=== PATIENT | female | born 1955 | race Caucasian/White ===

== ENCOUNTER 2018-06-07 21:06 | Observation (INO) | payer BC, OTHER ==
[~2018-06-07] VITALS: Ht 160 cm; Wt 81.9 kg
[~2018-06-07 21:06] MED LIST: FLAGYL500 MG PO; FLEXERIL10 MG PO; FLONASE16 G1 BOTH NARES; LUNESTA3 MG PO; MEVACOR40 MG PO; PERCOCET 10/1 TABLET PO; PROVENTIL2.5 MG/3 M IH; TOPAMAX100 MG PO; VENTOLIN HFA18 GM IH; XYZAL5 MG PO
[2018-06-07 22:35] LABS: BASOPHIL (%) 0.7 % (0-1); BASOPHIL COUNT 0.1 K/uL (0-0.1); EOSINOPHIL (%) 2.5 % (0-5); EOSINOPHIL COUNT 0.2 K/uL (0-0.3); HEMATOCRIT 39.6 % (36.0-46.0); HEMOGLOBIN 13.5 G/DL (11.9-15.5); IMMATURE GRANULOCYTE (%) 0.4 % (0.0-0.7); LYMPHOCYTE (%) 33.8 % (15-42); LYMPHOCYTE COUNT 2.3 K/uL (1.0-2.8); MCH 31.3 PG (29.0-34.0); MCHC 34.1 G/DL (30.0-36.0); MCV 91.7 FL (83-99); MONOCYTE (%) 8.4 % (3-12); MONOCYTE COUNT 0.6 K/uL (0-0.8); NEUTROPHIL (%) 54.2 % (45-76); NEUTROPHIL COUNT 3.6 K/uL (1.8-6.4); PLATELET COUNT 281 K/uL (156-360); RBC DIS.WIDTH-CV 12.2 % (11.8-14.6); RBC DIS.WIDTH-SD 40.6 % (39-53); RED BLOOD COUNT 4.32 M/uL (3.80-5.20); WHITE BLOOD COUNT 6.7 K/uL (4.1-10.2)
[2018-06-07 22:43] LABS: CHLORIDE 108 mEq/L (99-109); POTASSIUM 3.7 mEq/L (3.7-5.4); SODIUM 141 mEq/L (136-147)
[2018-06-07 22:44] LABS: MAGNESIUM 2.2 mg/dL (1.3-2.7)
[2018-06-07 22:45] LABS: GLUCOSE 95 mg/dL (70-99)
[2018-06-07 22:49] LABS: CREATININE 0.9 mg/dL (0.6-1.3); GFR ESTIMATE (CALCULATED) > 59 mL/min/; UREA NITROGEN (BUN) 12 mg/dL (9-23)
[2018-06-07 22:53] LABS: TROP-I INTERPRETATION NEGATIVE; TROPONIN-I 0.14 ng/mL (0.0-0.30)
[2018-06-08] MEDS ORDERED: AMITRIPTYLINE H25 MG PO (00:57)
[2018-06-08] MEDS ORDERED: OXYCODONE-APAP1 EACH PO (00:57)
[2018-06-08] MEDS ORDERED: LOVASTATIN40 MG PO (00:58)
[2018-06-08] MEDS ORDERED: LEVOCETIRIZINE D5 MG PO (00:59)
[2018-06-08] MEDS ORDERED: TOPIRAMATE100 MG PO (00:59)
[2018-06-08] MEDS ORDERED: XANAX0.25 MG PO (01:00)
[2018-06-08] MEDS ORDERED: ADVAIR 100/501 DISK IH (01:01)
[2018-06-08] MEDS ORDERED: EFFEXOR75 MG PO (01:01)
[2018-06-08] MEDS ORDERED: PREVACID30 MG PO (01:01)
[2018-06-08] MEDS ORDERED: LO-DOSE ASPIRIN81 M2 PO (01:03)
[2018-06-08 02:27] LABS: ALBUMIN 4.4 g/dL (3.2-4.8)
[2018-06-08 02:30] LABS: TOTAL PROTEIN 7.1 g/dL (6.4-8.3)
[2018-06-08 02:31] LABS: TOTAL BILIRUBIN 0.4 mg/dL (0.0-1.0)
[2018-06-08 02:32] LABS: ALKALINE PHOSPHATASE 83 IU/L (3-129)
[2018-06-08 02:35] LABS: AST (GOT) 18 IU/L (2-34); DIRECT BILIRUBIN 0.1 mg/dL (0.0-0.3)
[2018-06-08 02:36] LABS: ALT (GPT) 16 IU/L (3-49); LIPASE 18 U/L (1.0-51.0)
[2018-06-08 03:21] VITALS: BP 159/85
[2018-06-08 05:01] LABS: HEMATOCRIT 37.5 % (36.0-46.0); HEMOGLOBIN 12.9 G/DL (11.9-15.5); MCH 31.5 PG (29.0-34.0); MCHC 34.4 G/DL (30.0-36.0); MCV 91.5 FL (83-99); PLATELET COUNT 263 K/uL (156-360); RBC DIS.WIDTH-CV 12.2 % (11.8-14.6); RBC DIS.WIDTH-SD 40.8 % (39-53); WHITE BLOOD COUNT 6.5 K/uL (4.1-10.2)
[2018-06-08 05:10] LABS: CHLORIDE 108 mEq/L (99-109); POTASSIUM 3.4 mEq/L (3.7-5.4); SODIUM 140 mEq/L (136-147)
[2018-06-08 05:15] LABS: CREATININE 0.9 mg/dL (0.6-1.3); GFR ESTIMATE (CALCULATED) > 59 mL/min/
[2018-06-08 05:16] LABS: GLUCOSE 119 mg/dL (70-99); UREA NITROGEN (BUN) 12 mg/dL (9-23)
[2018-06-08 05:22] LABS: TROP-I INTERPRETATION NEGATIVE; TROPONIN-I 0.15 ng/mL (0.0-0.30)
[2018-06-08 07:41] VITALS: BP 126/64
[2018-06-08 11:35] LABS: TROP-I INTERPRETATION NEGATIVE; TROPONIN-I 0.13 ng/mL (0.0-0.30)
[2018-06-08 11:42] VITALS: BP 122/71
[2018-06-08] MEDS ORDERED: NITROSTAT0.4 MG SL (13:01)
[2018-06-08] MEDS ORDERED: LOPRESSOR25 MG PO (13:02)
[2018-06-08 13:26] LABS: BENZODIAZEPINES, URINE SCREEN Negative (200 ng/mL)
== END 2018-06-08 15:08 | disposition home or self-care (01) ==
LOC: EME 21:06 → EDOF 06-08 01:32 → ENRESERV 06-08 01:33 → 4SOUTH 06-08 02:29
PROVIDERS: Emergency Medicine; Hospitalist
DX: R07.9 Chest pain, unspecified (principal); I25.10 Atherosclerotic heart disease of native coronary artery without angina pectoris; J44.9 Chronic obstructive pulmonary disease, unspecified; I10 Essential (primary) hypertension; E78.5 Hyperlipidemia, unspecified; F41.9 Anxiety disorder, unspecified; I73.9 Peripheral vascular disease, unspecified; Z95.820 Peripheral vascular angioplasty status with implants and grafts; Z79.82 Long term (current) use of aspirin; K21.9 Gastro-esophageal reflux disease without esophagitis; I25.2 Old myocardial infarction; G89.29 Other chronic pain; M54.9 Dorsalgia, unspecified; Z90.710 Acquired absence of both cervix and uterus; Z87.891 Personal history of nicotine dependence; F12.90 Cannabis use, unspecified, uncomplicated; Z80.3 Family history of malignant neoplasm of breast; Z82.49 Family history of ischemic heart disease and other diseases of the circulatory system; Z83.3 Family history of diabetes mellitus; Z88.8 Allergy status to other drugs, medicaments and biological substances
CPT/HCPCS: 71045; 71275; 80048; 80076; 80306 90; 83690; 83735; 84484; 85025; 85027; 85379; 93005; 94799; 99281; 99285; G0378; J1650